=== PATIENT | female | born 1965 | race Caucasian/White ===

== ENCOUNTER 2019-10-19 13:26 | Emergency (ER) | payer BC, OTHER ==
[~2019-10-19] VITALS: Ht 162.6 cm; Wt 83.9 kg
[2019-10-19] MEDS ORDERED: KETOROLAC TROMETHAMINE 30 MG/ML VIAL IV ONE (14:26)
--- NOTE | 2019-10-19 14:32 | Diagnostic Imaging Report ---
CT of the abdomen and pelvis History: Lower abdominal pain Comparison: None available. Technique: Multidetector CT scanning of the abdomen and pelvis was performed from the level of the lung bases to the inferior pubic ramus, without contrast DOSE REDUCTION: The examination was performed according to departmental dose-optimization program which includes automated exposure control, adjustment of the mA and/or kV according to patient size and/or use of iterative reconstruction technique. Discussion: The lung bases are clear. The liver is within normal limits of size. In the peripheral right hepatic lobe there is a 1.1 x 1.7 cm low attenuating lesion which is not completely characterized on this noncontrast examination. The gallbladder is present nondistended. No radiopaque gallstones are identified. There is no intrahepatic or extrahepatic biliary dilatation. Spleen is within normal limits. The bilateral adrenal glands are unremarkable. The pancreas is normal in appearance. There is no pancreatic ductal dictation. The kidneys are normal in size. A nonobstructing 4 mm calculus is present in the upper pole of the left kidney. There is a 2.7 cm cyst in the lower pole of the left kidney. There is no hydroureteronephrosis bilaterally. At the left ureterovesicular junction there is a 5 x 3 mm calculus. The bladder is normal. The stomach, small, and large bowel are nondistended. There is no evidence of obstruction. The appendix is normal. There is no free intraperitoneal air or ascites. The uterus is surgically absent. The abdominal aorta is of normal course and caliber. No enlarged abdominal or retroperitoneal lymph nodes are identified. There are no acute osseous antibodies. IMPRESSION: 1. 5 mm x 3 mm calculus at the left ureterovesicular junction. There is no hydroureteronephrosis. Additionally, there is a nonobstructing 4 mm calculus in the upper pole of the left kidney. 2. Incompletely characterized 1.1 x 1.7 cm low attenuating lesion in the right hepatic lobe. Further evaluation can be obtained with a nonemergent multiphase contrast-enhanced CT or MRI. 3. Status post hysterectomy. Signed by: Joe Hagan MD on 10/19/2019 2:28 PM
[2019-10-19] MEDS ORDERED: KETOROLAC TROMETHAMINE 30 MG/ML VIAL ONE (14:41)
[2019-10-19] MEDS ORDERED: TYLENOL # 31 EA PO (14:48)
[2019-10-19] MEDS ORDERED: CEFDINIR300 MG PO (14:48)
[2019-10-19] MEDS ORDERED: SODIUM CHLORIDE 0.9% 1000ML 1,000 ML IV SCH (14:52)
[2019-10-19] MEDS ORDERED: SODIUM CHLORIDE 0.9% 1000ML 1,000 ML ONE (14:58)
--- OUTSIDE RECORDS SUMMARY | 2019-10-26 11:52 | XMS REPORT ---
Author Author [facility] Address Unknown Phone Unavailable Care Team Providers Care Chalk Machine Operator Name Role Phone Suri DELGADILLO Unavailable Unavailable Problems This patient has no known problems. Allergies, Adverse Reactions, Alerts This patient has no known allergies or adverse reactions. Medications This patient has no known medications. Results Test Description Test Time Test Comments Text Results Atomic Results Result Comments CT ABD/PEL WO CONTRAST-HOPD 2019-10-19 14:14:00 [place] [address] Patient Name: COURTNEY CASTELLANOS MR #: [id number] : 1965 Age/Sex: 54/F Req #: [id number] Adm Physician: Ordered by: JB DELGADILLO MD Report #: [id number] Location: [facility] Room/Bed: Procedure: [id number] HOPD/CT ABD/PEL WO CONTRAST-HOPD Exam Date: 10/19/19 Exam Time: 1408 REPORT STATUS: Signed CT of the abdomen and pelvis History: Lower abdominal pain Comparison: None available. Technique: Multidetector CT scanning of the abdomen and pelvis was performed from the level of the lung bases to the inferior pubic ramus, without contrast DOSE REDUCTION: The examination was performed according to departmental dose-optimization program which includes automated exposure control, adjustment of the mA and/or kV according to patient size and/or use of iterative reconstruction technique. Discussion: The lung bases are clear. The liver is within normal limits of size. In the peripheral right hepatic lobe there is a 1.1 x 1.7 cm low attenuating lesion which is not completely characterized on this noncontrast examination. The gallbladder is present nondistended. No radiopaque gallstones are identified. There is no intrahepatic or extrahepatic biliary dilatation. Spleen is within normal limits. The bilateral adrenal glands are unremarkable. The pancreas is normal in appearance. There is no pancreatic ductal dictation. The kidneys are normal in size. A nonobstructing 4 mm calculus is present in the upper pole of the left kidney. There is a 2.7 cm cyst in the lower pole of the left kidney. There is no hydroureteronephrosis bilaterally. At the left ureterovesicular junction there is a 5 x 3 mm calculus. The bladder is normal. The stomach, small, and large bowel are nondistended. There is no evidence of obstruction. The appendix is normal. There is no free intraperitoneal air or ascites. The uterus is surgically absent. The abdominal aorta is of normal course and caliber. No enlarged abdominal or retroperitoneal lymph nodes are identified. There are no acute osseous antibodies. IMPRESSION: 1. 5 mm x 3 mm calculus at the left ureterovesicular junction. There is no hydroureteronephrosis. Additionally, there is a nonobstructing 4 mm calculus in the upper pole of the left kidney. 2. Incompletely characterized 1.1 x 1.7 cm low attenuating lesion in the right hepatic lobe. Further evaluation can be obtained with a nonemergent multiphase contrast- enhanced CT or MRI. 3. Status post hysterectomy. Signed by: Joe Barnhart MD on 10/19/2019 2:28 PM Dictated By: JOE BARNHART MD [id number] Transcribed By: JANINE on 10/19/19 1427 COPY TO: JB DELGADILLO MD
== END 2019-10-19 15:38 | disposition home or self-care (01) ==
LOC: FSED 13:26
DX: M54.5 Low back pain (principal); R10.9 Unspecified abdominal pain; R31.9 Hematuria, unspecified; N39.0 Urinary tract infection, site not specified; N20.2 Calculus of kidney with calculus of ureter
CPT/HCPCS: 74176; 99284; J1885; J7030

== ENCOUNTER 2020-03-25 17:47 | Emergency (ER) | payer BC ==
[~2020-03-25] VITALS: Ht 162.6 cm; Wt 84.8 kg
[~2020-03-25 17:47] MED LIST: CEFDINIR300 MG PO; TYLENOL # 31 EA PO
--- OUTSIDE RECORDS SUMMARY | 2020-03-25 17:50 | XMS REPORT ---
Author Author [facility] t Organization [facility] Address [address] [place] [address] Phone Unavailable Care Team Providers Care Technical Instructor Course Developer Name Role Phone ROSIBEL PIZARRO PCP Suri ANN Attphys Unavailable Poag, A Kristen Attphys Sara Fitch Attphys Heidy Sandoval Attphys Jamar Villanueva Attphys Payers Payer Name Policy Type Policy Number Effective Date Expiration Date Jonah Wei o [id number] 2007 00:00:00 [facility] Problems This patient has no known problems. Allergies, Adverse Reactions, Alerts This patient has no known allergies or adverse reactions. Medications Ordered Medication Name Filled Medication Name Start Date Stop Da te Current Medication? Ordering Clinician Indication Dosage Frequency Signature (SIG) Comments Components Source Acetaminophen/Codeine Phosphate (Tylenol # 3*) 1 Ea Ta b Acetaminophen/Codeine Phosphate (Tylenol # 3*) 1 Ea Tab 2019-10-19 00:00:00 Yes Jb Ann Md 1 Every 4 Hours as needed for Moderate Pain (4-6) [facility] Cefdinir (Omnicef) 300 Mg Capsule Cefdinir (Omnicef) 300 Mg Capsule 2019-10-19 00:00:00 Yes Jb Ann Md 300 Every 12 Hours [facility] Procedures This patient has no known procedures. Encounters Start Date/Time End Date/Time Encounter Type Admission Type [facility] Care Department Encounter ID Source 2019-10-19 13:26:00 2019-10-19 15:38:00 Departed Emergency Room 1 JB ANN [facility] [id number] [facility] 2017-05-14 08:21:00 2017-05-14 23:59:00 Outpatient RamboKristen [facility] [id number] [facility] - [place] 2017-03-25 13:53:00 2017-03-25 23:59:00 Outpatient Yolande Fitch [facility] [id number] [facility] Out patient Imaging - [place] 2016-06-01 14:57:00 2016-06-01 23:59:00 [facility] [id number] - [place] 2015-07-08 22:21:00 2015-07-09 03:05:00 Outpatient Atilio Villanueva [facility] [id number] [facility] Results Test Description Test Time Test Comments Results Result Comments Source CT ABD/PEL WO CONTRAST-HOPD 2019-10-19 14:14:00 [place] [address] Patient Name: COURTNEY ACSTELLANOS MR #: [id number] : 1965 Age/Sex: 54/F Req #: [id number] Adm Physician: Ordered by: JB ANN MD Report #: [id number] Location: [facility] Room/Bed: Procedure: [id number] HOPD/CT ABD/PEL WO CONTRAST-HOPD Exam Date: 10/19/19 Exam Time: 1408 REPORT STATUS: Signed CT of the abdomen and pelvis History: Lower abdominal pain Comparison: None available. Technique: Multidetector CT scanning of the abdomen and pelvis was performed from the level of the lung bases to the inferior pubic ramus, without contrast DOSE REDUCTION: The examination was performed according to departmental dose- optimization program which includes automated exposure control, adjustment [...] There is no evidence of obstruction. The appendi x is normal. There is no free intraperitoneal [...] can be obtained with a nonemergent multiphase contrast-enhanced CT or MRI. 3. Status post hysterectomy. Signed by: Joe Barnhart MD on 10/19/2019 2:28 PM Dictated By: JOE BARNHART MD 142 Transcribed By: JANINE on 10/19/191427 COPY TO: JB ANN MD
--- OUTSIDE RECORDS SUMMARY | 2020-03-25 17:50 | XMS REPORT | Summary of Care ---
Author Author [facility] - [facility] Organization [facility] - [facility] Address Unknown Phone Unavailable Encounter HQ Encntr_christy(FIN) [id number] Date(s): 05/14/17 - 05/14/17 [facility] Outpatient Imaging - [place] [address] [phone] Discharge Disposition: Home or Self Care Attending Physician: Kristen Ricks MD Vital Signs No data available for this section Problem List Condition Effective Dates Status Health Status Informan t Low back pain1 09/05/14 Active 1Data migrated from [employer] on 07/01/15. Allergies, Adverse Reactions, Alerts Substance Reaction Severity Status morphine Active NKDA Active Medications No data available for this section Results No data available for this section Immunizations No data available for this section Procedures Procedure Date Related Diagnosis Body Site section Social History Social History Type Response Smoking Status Never smoker; Exposure to T obacco Smoke None; Cigarette Smoking Last 365 Days No; Reg Smoking Cessation Counseli ng No Assessment and Plan No data available for this section
--- OUTSIDE RECORDS SUMMARY | 2020-03-25 17:50 | XMS REPORT | Continuity of Care Document ---
Author Author [employer] Organization [employer] Address Unknown Phone Unavailable Care Team Providers Care Exhaust Equipment Operator Name Role Phone [facility] Unavailable Un available Problems Problem Status Onset Date Classification Date Reported Comments Source N94.6 - "DYSMENORRHEA, UNSPECIFIED" N92 Active 05/25/2016 DERIAN Robert Discharge Diagnosis: Atypical chest pain 07/09/2015 07/12/2015 [facility] Discharge Diagnosis: Acute gastritis 07/09/2015 07/12/2015 [facility] CHEST PAIN Active 07/08/2015 [facility] Low back pain (disorder) Active 09/05/2014 Problem 05/17/2017 Data migrated from itembase on 07/01. EDRIAN Robert,[facility] Medications Medication Details Route Status Patient Instructions Ordering Provider Order Date Source tramadol hydrochloride 50 MG Oral Tablet [Ultram] 50 mg = 1 tab, PO, Q4H, PRN pain, X 3 day, # 20 tab, 0 Refill(s) No Longer Active 07/09/2015 [facility] Esomeprazole 20 MG Enteric Coated Capsule [Nexium] 20 mg = 1 cap, PO, Daily, # 30 cap, 0 Refill(s) Active 07/09/2015 [facility] GI cocktail 30 mL, Route: PO, Dosing Weight 79.545, kg, ONCE, STAT, Start date: 07/09/15 0:08:00, Stop date: 07/09/15 0:08:00 Inactive 07/09/2015 [facility] Allergies, Adverse Reactions, Alerts Substance Category Reaction Severity Reaction type Status Date Reported Comments Source morphine Assertion Drug allergy Active DERIAN Robert Immunizations No Data Provided for This Section Results Order Name Results Value Reference Range Date Interpretation Comments Source CARDIAC ENZYMES CK MB Index <0.6 0.0 - 2.5 07/09/2015 [facility] CARDIAC ENZYMES CK MB <0.5 0.5 - 3.6 07/09/2015 [facility] CARDIAC ENZYMES Troponin-I <0.02 0.00 - 0.40 07/09/2015 [facility] CARDIAC ENZYMES Total CK 82 12 - 191 07/09/2015 [facility] CARDIAC ENZYMES CK MB Index <0.3 0.0 - 2.5 07/09/2015 [facility] CARDIAC ENZYMES CK MB <0.5 0.5 - 3.6 07/09/2015 [facility] CARDIAC ENZYMES Troponin-I <0.02 0.00 - 0.40 07/09/2015 [facility] CARDIAC ENZYMES Total CK 162 12 - 191 07/09/2015 [facility] ELECTROLYTES AGAP 12.2 10.0 - 20.0 07/09/2015 [facility] ELECTROLYTES A/G Ratio 0.9 0.7 - 1.6 07/09/2015 [facility] ELECTROLYTES Globulin 4.6 2.0 - 4.0 07/09/2015 [facility] ELECTROLYTES B/C Ratio 12 6 - 25 07/09/2015 [facility] ELECTROLYTES BUN 13 7 - 22 07/09/2015 [facility] ELECTROLYTES Alk Phos 95 39 - 136 07/09/2015 [facility] ELECTROLYTES Bili Total 0.3 0.2 - 1.3 07/09/2015 [facility] ELECTROLYTES AST 66 0 - 37 07/09/2015 [facility] ELECTROLYTES ALT 41 0 - 65 07/09/2015 [facility] ELECTROLYTES Glucose Lvl 110 70 - 99 07/09/2015 [facility] ELECTROLYTES Total Protein 8.6 6.4 - 8.4 07/09/2015 [facility] ELECTROLYTES Albumin Lvl 4.0 3.5 - 5.0 07/09/2015 [facility] ELECTROLYTES CO2 24 24 - 32 07/09/2015 [facility] ELECTROLYTES eGFR 59 07/09/2015 Result Comment: The eGFR is calculated using the CKD-EPI formula. In most young, healthy individuals the eGFR will be >90 mL/min/1.73m2. The eGFR declines with age. An eGFR of 60-89 may be normal in some populations, particularly the elderly, for whom the CKD-EPI formula has not been extensively validated. Use of the eGFR is not recommended in the following populations:

Individuals with unstable creatinine concentrations, including patients and those with serious co-morbid conditions.

Patients with extremes in muscle mass or diet.

The data above are obtained from the National Kidney Disease Education Program (NKDEP) which additionally recommends that when the eGFR is used in patients with extremes of body mass index for purposes of drug dosing, the eGFR should be multiplied by the estimated BMI. [facility] ELECTROLYTES Sodium Lvl 136 135 - 145 07/09/2015 [facility] ELECTROLYTES Creatinine Lvl 1.1 0.5 - 1.4 07/09/2015 [facility] ELECTROLYTES Potassium Lvl 5.2 3.5 - 5.1 07/09/2015 [facility] ELECTROLYTES Calcium Lvl 9.1 8.5 - 10.5 07/09/2015 [facility] ELECTROLYTES Chloride Lvl 105 95 - 109 07/09/2015 [facility] HEMATOLOGY Platelet 252 133 - 450 07/09/2015 [facility] HEMATOLOGY MPV 10.5 7.4 - 10.4 07/09/2015 [facility] HEMATOLOGY MCHC 32.5 32.0 - 36.0 07/09/2015 [facility] HEMATOLOGY RDW 13.3 11.5 - 14.5 07/09/2015 [facility] Hct 42.6 36.0 - 48.0 07/09/2015 [facility] HEMATOLOGY MCV 88.7 80.0 - 98.0 07/09/2015 [facility] MCH 28.8 27.0 - 31.0 07/09/2015 [facility] HEMATOLOGY RBC 4.80 4.20 - 5.40 07/09/2015 [facility] HEMATOLOGY Hgb 13.8 12.0 - 16.0 07/09/2015 [facility] HEMATOLOGY WBC 6.4 3.7 - 10.4 07/09/2015 [facility] HEMATOLOGY Monocytes 5.9 2.0 - 12.0 07/09/2015 [facility] HEMATOLOGY Eosinophils 3.0 0.0 - 4.0 07/09/2015 [facility] HEMATOLOGY Basophils 1.1 0.0 - 1.0 07/09/2015 [facility] HEMATOLOGY Lymphocytes 40.9 20.0 - 40.0 07/09/2015 [facility] HEMATOLOGY Segs 49.1 45.0 - 75.0 07/09/2015 [facility] HEMATOLOGY Segs-Bands # 3.2 1.5 - 8.1 07/09/2015 [facility] HEMATOLOGY Monocytes # 0.4 0.0 - 0.8 07/09/2015 [facility] HEMATOLOGY Eosinophils # 0.2 0.0 - 0.5 07/09/2015 [facility] HEMATOLOGY Basophils # 0.1 0.0 - 0.2 07/09/2015 [facility] HEMATOLOGY Lymphocytes # 2.6 1.0 - 5.5 07/09/2015 [facility] Pathology Reports No Data Provided for This Section Diagnostic Reports Report Value Date Source Breast Mammo Scrn LANDEN incl CAD MA AMENDMENT: 06/16/2017 Harley Gaitan M.D. Previous outside mammograms dated 05/11/16, 11/23/11, 05/26/10 have been received. No significant change from previous exam noted. Annual screening mammogram is recommended. Amended BI-RADS: 1 Negative - BREAST MAMMO SCRN LANDEN INCL CAD MA BILATERAL DIGITAL SCREENING MAMMOGRAM WITH CAD: 05/14/2017 CLINICAL: Screening/Z12.31. Current study was evaluated with a Computer Aided Detection (CAD) system. No prior exams were available for comparison. There are scattered fibroglandular densities in both breasts. No significant masses, calcifications, or other findings are seen in either breast. IMPRESSION: NEGATIVE There is no mammographic evidence of malignancy. A 1 year screening mammogram is recommended. Professional services are provided by the [facility] Division of Diagnostic Imaging. Emi childs/eyad:05/30/2017 14:33:18 Cutter Barrel Drum: Jemma Richter, [facility] This exam was dictated and interpreted by [id number] for ZEENAT Manzo. letter sent: Normal exam Mammogram BI-RADS: 1 Negative 05/14/2017 DERIAN Robert Foot wo contrast MRI CLINICAL HISTORY: M67.472 Ganglion, left ankle and foot - ganglion cyst AGE: 52 years GENDER: Female TECHNIQUE: Multiplanar, multisequence MRI of the left forefoot and midfoot was performed without gadolinium based contrast. COMPARISON: None available FINDINGS: Moderate degenerative changes are seen in the second tarsometatarsal joint with associated marrow edema in the middle cuneiform and second metatarsal base. Edema extends into the proximal second metatarsal metadiaphysis. Mild overlying soft tissue edema is seen dorsal to the second TMT joint. No discrete loculated ganglion cyst is seen at this site. Mild degenerative changes in the third TMT joint. There is hallux valgus deformity of the first MTP joint with mild lateralization of the sesamoids and flattening of the cristiana. Mild degenerative changes are seen in the first MTP and MTS joints. The visualized flexor and extensor tendons are intact and unremarkable. Visualized musculature is within normal limits. The Lisfranc articulation is normally aligned. The Lisfranc ligament is intact. Mild third intermetatarsal bursitis. 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 Degree of marrow edema in the second metatarsal base raises the question of superimposed stress reaction. There is moderate dorsal soft tissue edema overlying the second tarsometatarsal joint without evidence of significant ganglion cyst formation. MR findings suggest hallux valgus deformity of the first MTP joint with mild lateralization of the hallux sesamoids. This can be confirmed with weightbearing radiographs as warranted. Mild degenerative changes of the first MTP and MTS joints. Mild third intermetatarsal bursitis. 03/25/2017 [facility] [place] Pelvis w Pelvis Transvaginal US EXAM: Pelvic ultrasound. INDICATION: Dysmenorrhea. Age: 51 years. Gender: Female. LMP: 05/24/2016. TECHNIQUE: Grayscale and Doppler sonogram of the pelvis. Transabdominal technique was used. Transvaginal technique was used for better evaluation of the pelvic viscera. COMPARISON: None. FINDINGS: Uterus: Visualization: Well seen. Anteverted. Measures 9.6 x 4.3 x 7.7 cm. 2.8 x 3.5 x 3.4 cm anterior intramural a nd 3.5 x 2.5 x 2.4 cm right intramural fibroids. Endometrial stripe: Measures 0.7 cm which is not thickened. Right ovary: Measures 2 x 1 x 1.4 cm. Doppler flow: Present. Left ovary: Measures 2 x 1.6 x 1.9 cm. Doppler flow: Present. Other: 1.5 cm anechoic follicular cyst; no follow-up needed. Other: Free fluid: None. IMPRESSION: 1. Intramural fibroids. Recommendations for f/u of anechoic simple cyst, simple cyst with single thin <3mm septation, or focal calcification in wall of cyst1: Pre-menopause: < 5 cm No f/u necessary >5cm - <7cm US f/u yearly >7cm Consider MR w/IVC or surgical evaluation Post-menopause (1 year or more since last menstrual period): <3 cm No f/u necessary >3cm - <7 cm US f/u yearly >7cm Consider MR w/IVC or surgical evaluation __ 1. Recommendations based upon the 2009 S RU Consensus Conference Statement on the Management of asymptomatic ovarian and adnexal cysts imaged at US. Radiology. 2009;256(3):183-54 06/01/2016 DERIAN Robert Chest 2 views DX NAME: COURTNEY VENTURA : 1965 SEX: F Ordering Physician: Bolivar Pritchard Chest 2 views : Jul 08, 2015 11:07:00 PM. CLINICAL INDICATION: Chest pain. Comparison Examination: None. FINDINGS: Cardiac and mediastinal structures are normal. No focal infiltrates are identified within the lungs, no edema, no pleural effusions and no pneumothorax. The patient is status post prior cervical spine surgery. SL: 14 07/08/2015 [facility] Consultation Notes No Data Provided for This Section Discharge Summaries No Data Provided for This Section History and Physicals No Data Provided for This Section Vital Signs Vital Sign Value Date Comments Source Heart Rate 83 07/09/2015 [facility] Respitory Rate 20 07/09/2015 [facility] Temperature Oral (F) 98.1 F 07/09/2015 [facility] Systolic (mm Hg) 109 07/09/2015 [facility] Diastolic (mm Hg) 73 07/09/2015 [facility] Systolic (mm Hg) 139 07/09/2015 [facility] Diastolic (mm Hg) 96 07/09/2015 [facility] Respitory Rate 17 07/09/2015 [facility] Systolic (mm Hg) 139 07/09/2015 [facility] Diastolic (mm Hg) 96 07/09/2015 [facility] Respitory Rate 18 07/09/2015 [facility] Temperature Oral (F) 98.2 F 07/09/2015 [facility] Heart Rate 74 07/09/2015 [facility] BMI Calculated 30.1 07/09/2015 [facility] Weight 79.545 07/09/2015 [facility] Height 162.56 cm 07/09/2015 [facility] Heart Rate 97 07/09/2015 [facility] Temperature Oral (F) 98.4 F 07/09/2015 [facility] Encounters Location Location Details Encounter Type Encounter Number Reason For Visit Attending Provider ADM Date DC Date Status Source [facility] [id number] Atilio Villanueva 07/09/2015 07/09/2015 [facility] [place] [facility] [id number] Kirstie WilliamDeshaun 06/01/2016 06/02/2016 DERIAN [place] [facility] [place] [facility] [id number] Yolande Michaudedd 03/25/2017 03/26/2017 DERIAN [place] [facility] [place] [facility] [id number] 02 Kristen Poag 05/14/2017 05/15/2017 DERIAN Robert Procedures Procedure Code Date Perfomer Comments Source section [id number] DERIAN Robert, Chandan Assessment and Plan No Data Provided for This Section Plan of Care No Data Provided for This Section Social History Social History Date Source Social History TypeResponse Smoking Status Never smoker; Exposure to Tobacco Smoke None; Cigarette Smoking Last 365 Days No; Reg Smoking Cessation Counseling No 03/24/2017 DERIAN Robert Social History TypeResponse Smoking Status Never smoker; Exposure to Tobacco Smoke None; Cigarette Smoking Last 365 Days No; Reg Smoking Cessation Counseling No 07/09/2015 [facility] Family History No Data Provided for This Section Advance Directives No Data Provided for This Section Functional Status No Data Provided for This Section
--- OUTSIDE RECORDS SUMMARY | 2020-03-25 17:50 | XMS REPORT | Summary of Care ---
Author Author [facility] Organization [facility] Address Unknown Phone Unavailable Encounter MANDA Abraham(LAUREN) [id number] Date(s): 07/08/15 - 07/09/15 [facility] [address] [place] [address]- Discharge Diagnosis: Atypical chest pain Discharge Diagnosis: Acute gastritis Discharge Disposition: Home Attending Physician: Atilio Villanueva MD Vital Signs 1 2 3 Most recent to oldest [Reference Range]: 162.56 cm (07/08/15 10:22 PM) Height 1 2 3 Most recent to oldest [Reference Range]: 98.1 DegF (07/09/15 3:05 AM) 98.2 DegF (07/09/15 1:00 AM) 98.4 DegF (07/08/15 10:22 PM) Temperature Oral [96.4-99.1 DegF] 1 2 3 Most recent to oldest [Reference Range]: 109/73 mmHg (07/09/15 3:05 AM) 139/96 mmHg (07/09/15 1:56 AM) 139/96 mmHg (07/09/15 1:00 AM) Blood Pressure [90-140/60-90 mmHg] 1 2 3 Most recent to oldest [Reference Range]: 20 BRMIN (07/09/15 3:05 AM) 17 BRMIN (07/09/15 1:56 AM) 18 BRMIN (07/09/15 1:00 AM) Respiratory Rate [14-20 BRMIN] 1 2 3 Most recent to oldest [Reference Range]: 83 bpm (07/09/15 3:05 AM) 74 bpm (07/09/15 1:00 AM) 97 bpm (07/08/15 10:22 PM) Peripheral Pulse Rate [60-100 bpm] 1 2 3 Most recent to oldest [Reference Range]: 79.545 kg (07/08/15 10:22 PM) Weight 1 2 3 Most recent to oldest [Reference Range]: 30.1 m2 (07/08/15 10:22 PM) Body Mass Index Problem List Condition Effective Dates Status Health Status Informan t Low back pain1 09/05/14 Active 1Data migrated from [facility] on 07/01/15. Allergies, Adverse Reactions, Alerts Substance Reaction Severity Status morphine Active Medications GI cocktail 30 mL, Route: PO, Dosing Weight 79.545, kg, ONCE, STAT, Start date: 07/09/15 0:0 8:00, Stop date: 07/09/15 0:08:00 Start Date: 07/09/15 Stop Date: 07/09/15 Status: Completed NexIUM 20 mg oral delayed release capsule 20 mg = 1 cap, PO, Daily, # 30 cap, 0 Refill(s) Start Date: 07/09/15 Status: Ordered Ultram 50 mg oral tablet 50 mg = 1 tab, PO, Q4H, PRN pain, X 3 day, # 20 tab, 0 Refill(s) Start Date: 07/09/15 Stop Date: 07/12/15 Status: Completed Results ELECTROLYTES Most recent to 1 2 oldest [Reference Range]: Sodium Lvl [135-145 136 mEq/L mEq/L] (07/08/15 10:27 PM) Potassium Lvl 5.2 mEq/L [3.5-5.1 mEq/L] *HI* (07/08/15 10:27 PM) Chloride Lvl [95-109 105 mEq/L mEq/L] (07/08/15 10:27 PM) CO2 [24-32 mEq/L] 24 mEq/L (07/08/15 10:27 PM) AGAP [10.0-20.0 12.2 mEq/L mEq/L] (07/08/15 10:27 PM) CHEM PANEL Most recent to 1 2 oldest [Reference Range]: Creatinine Lvl 1.1 mg/dL [0.5-1.4 mg/dL] (07/08/15 10:27 PM) eGFR 59 mL/min/1.73m2 1 *NA* (07/08/15 10:27 PM) BUN [7-22 mg/dL] 13 mg/dL (07/08/15 10:27 PM) B/C Ratio [6-25] 12 (07/08/15 10:27 PM) Glucose Lvl [70-99 110 mg/dL mg/dL] *HI* (07/08/15 10:27 PM) Total Protein 8.6 g/dL [6.4-8.4 g/dL] *HI* (07/08/15 10:27 PM) Albumin Lvl [3.5-5.0 4.0 g/dL g/dL] (07/08/15 10:27 PM) Globulin [2.0-4.0 4.6 g/dL g/dL] *HI* (07/08/15 10:27 PM) A/G Ratio [0.7-1.6] 0.9 (07/08/15 10:27 PM) Calcium Lvl 9.1 mg/dL [8.5-10.5 mg/dL] (07/08/15 10:27 PM) ALT [0-65 unit/L] 41 unit/L (07/08/15 10:27 PM) AST [0-37 unit/L] 66 unit/L *HI* (07/08/15 10:27 PM) Alk Phos [39-136 95 unit/L unit/L] (07/08/15 10:27 PM) Bili Total [0.2-1.3 0.3 mg/dL mg/dL] (07/08/15 10:27 PM) 1Result Comment: The eGFR is calculated using the [...] from the National Kidney Disease Education Program ( NKDEP) which additionally recommends that when the eGFR is used in patients with extremes of body mass index for purposes of drug dosing, the eGFR should be mul tiplied by the estimated BMI. CARDIAC ENZYMES Most recent to 2 oldest [Reference Range]: Total CK [12-191 82 unit/L 162 unit/L unit/L] (07/09/15 1:41 AM) (07/08/15 10:27 PM) CK MB [0.5-3.6 <0.5 ng/mL <0.5 ng/mL ng/mL] (07/09/15 1:41 AM) (07/08/15 10:27 PM) CK MB Index <0.6 <0.3 [0.0-2.5] (07/09/15 1:41 AM) (07/08/15 10:27 PM) Troponin-I <0.02 ng/mL <0.02 ng/mL [0.00-0.40 ng/mL] (07/09/15 1:41 AM) (07/08/15 10:27 PM) HEMATOLOGY Most recent to 1 2 oldest [Reference Range]: WBC [3.7-10.4 K/CMM] 6.4 K/CMM (07/08/15 10:27 PM) RBC [4.20-5.40 4.80 M/CMM M/CMM] (07/08/15 10:27 PM) Hgb [12.0-16.0 g/dL] 13.8 g/dL (07/08/15 10:27 PM) Hct [36.0-48.0 %] 42.6 % (07/08/15 10:27 PM) MCV [80.0-98.0 fL] 88.7 fL (07/08/15 10:27 PM) MCH [27.0-31.0 pg] 28.8 pg (07/08/15 10:27 PM) MCHC [32.0-36.0 32.5 g/dL g/dL] (07/08/15 10:27 PM) RDW [11.5-14.5 %] 13.3 % (07/08/15 10:27 PM) Platelet [133-450 252 K/CMM K/CMM] (07/08/15 10:27 PM) MPV [7.4-10.4 fL] 10.5 fL *HI* (07/08/15 10:27 PM) Segs [45.0-75.0 %] 49.1 % (07/08/15 10:27 PM) Lymphocytes 40.9 % [20.0-40.0 %] *HI* (07/08/15 10:27 PM) Monocytes [2.0-12.0 5.9 % %] (07/08/15 10:27 PM) Eosinophils [0.0-4.0 3.0 % %] (07/08/15 10:27 PM) Basophils [0.0-1.0 1.1 % %] *HI* (07/08/15 10:27 PM) Segs-Bands # 3.2 K/CMM [1.5-8.1 K/CMM] (07/08/15 10:27 PM) Lymphocytes # 2.6 K/CMM [1.0-5.5 K/CMM] (07/08/15 10:27 PM) Monocytes # [0.0-0.8 0.4 K/CMM K/CMM] (07/08/15 10:27 PM) Eosinophils # 0.2 K/CMM [0.0-0.5 K/CMM] (07/08/15 10:27 PM) Basophils # [0.0-0.2 0.1 K/CMM K/CMM] (07/08/15 10:27 PM) Immunizations No data available for this section Procedures Procedure Date Related Diagnosis Body Site section Social History Social History Type Response Smoking Status Never smoker; Exposure to T obacco Smoke None; Cigarette Smoking Last 365 Days No; Reg Smoking Cessation Counseli ng No Assessment and Plan No data available for this section
--- OUTSIDE RECORDS SUMMARY | 2020-03-25 17:50 | XMS REPORT | Summary of Care ---
Author Author [facility] Organization [facility] Address Unknown Phone Unavailable Encounter HQ Madelinentr_christy(FIN) [id number] Date(s): 06/01/16 - 06/01/16 [facility] - [place] [address] [phone] Discharge Disposition: Home or Self Care Attending Physician: Kirstie Sandoval MD Vital Signs No data available for this section Problem List Condition Effective Dates Status Health Status Informan t Low back pain1 09/05/14 Active 1Data migrated from [facility] on 07/01/15. Allergies, Adverse Reactions, Alerts Substance Reaction Severity Status morphine Active Medications No data available for this [...]
--- OUTSIDE RECORDS SUMMARY | 2020-03-25 17:50 | XMS REPORT | Summary of Care ---
Author Author [facility] Organization [facility] Address Unknown Phone Unavailable Encounter HQ Encntr_christy(FIN) [id number] Date(s): 03/25/17 - 03/25/17 [facility] - [place] [address] [phone] Discharge Disposition: Home or Self Care Attending Physician: Yolande Fitch MD Vital Signs No data available for this section Problem List Condition Effective Dates Status Health Status Informan t Low back pain1 09/05/14 Active 1Data migrated from [employer] on 07/01/15. Allergies, Adverse Reactions, Alerts Substance [...]
[2020-03-25] MEDS ORDERED: ONDANSETRON HCL INJ 2MG/ML 2ML 2 MG/ML VIAL IV STA (18:28)
[2020-03-25] MEDS ORDERED: KETOROLAC TROMETHAMINE 30 MG/ML VIAL IV STA (18:28)
[2020-03-25] MEDS ORDERED: SODIUM CHLORIDE 0.9% 1000ML 1,000 ML IV ONE (18:30)
[2020-03-25] MEDS ORDERED: KETOROLAC TROMETHAMINE 30 MG/ML VIAL ONE (18:32)
[2020-03-25] MEDS ORDERED: SODIUM CHLORIDE 0.9% 1000ML 1,000 ML ONE (18:32)
--- NOTE | 2020-03-25 18:33 | Emergency Department Note ---
History of Present Illnes History of Present Illness Chief Complaint: Abdominal Complaints History of Present Illness This is a 55 year old female with a history of recurrent nep hrolithiasis, migraines, and narcolepsy who presents with history of right flank pain and hematuria that started last night and worsened today. She has also had some dysuria. No N/V, fever or chills. Pt was seen here on 10/19/2019 with similar symptoms and was found to have a 5mm x 3mm calculus at the L UVJ with no hydro, along with a 4mm stone in the upper pole of the left kidney. Her Urologist is Dr. Sanders in [place], but she has not seen him in quite a while. [facility] Aware [place] website queried and she has had no recent Rx for opioid pain medication. Historian: Patient Arrival Mode: Car Additional Treatment JANITORIAL MANAGER: N Sleeve Setter Required: No Onset (how long ago): day(s) (1) Location: right flank and suprapubic area Quality: sharp and stabbing Radiation: abdomen, flank Severity: moderate Onset quality: sudden Duration (how long): day(s) (1) Timing of current episode: constant Progression: worsening Chronicity: recurrent Context: recent illness, recent surgery, recent travel Relieving factors: none Exacerbating factors: none Treatments prior to arrival: none Risk factors: Recurrent kidney stone Previous service: medications given Past Medical/Family History Physician Review I have reviewed the patient's past medical and family history. Any updates have been documented here. Past Medical History Recent Fever: No Clinical Suspicion of Infectio: No New/Unexplained Change in Ment: No Past Medical History: Kidney Stones, Migraines Other Medical History: Narcolepsy Past Surgical History: Hysterectomy, Other Surgery: CERVICAL FUSION Social History Smoking Cessation: Never Smoker Counseling Performed: No Alcohol Use: None Any Illegal Drug Use: No TB Exposure/Symptoms: No Physically hurt or threatened: No Family History Family history of heart diseas: No Other Any Pre-Existing Lines (PICC,: No Is patient up to date on immun: Yes Last Flu: UTD Last Pneumovax: none Review of Systems Review of Systems Constitutional: no symptoms EENTM: no symptoms Cardiovascular: no symptoms Respiratory: no symptoms Gastrointestinal: no symptoms, nausea Genitourinary: hematuria, pain (right flank pain, radiating into the right lower abdomen, sharp, stabbing, "like her previous kidney stones.") Musculoskeletal: no symptoms Neurological: no symptoms Psychological: no symptoms Hematological/Lymphatic: no symptoms Review of other systems All other systems reviewed and negative. Physical Exam Related Data Allergies: Coded Allergies: No Known Allergies (Unverified , 10/19/19) Triage Vital Signs Vital Signs Date Time Temp Pulse Resp B/P (MAP) Pulse Ox O2 Delivery O2 Flow Rate FiO2 03/25/20 18:00 100.0 95 18 151/86 96 Vital signs reviewed: Yes Physical Exam CONSTITUTIONAL Constitutional: well-developed, well-nourished HENT HENT: normocephalic, atraumatic, oropharynx clear/moist, nose normal HENT L/R: left ext ear normal, right ext ear normal EYES Eyes: PERRL, conjunctivae normal NECK Neck: ROM normal PULMONARY Pulmonary: effort normal, breath sounds normal CARDIOVASCULAR Cardiovascular: regular rhythm, heart sounds normal, capillary refill normal, normal rate GASTROINTESTINAL Abdominal: bowel sounds normal, tender (mild ttp of right lower abdomen, without rebound or guarding) GENITOURINARY SKIN Skin: warm, dry MUSCULOSKELETAL Musculoskeletal: ROM normal NEUROLOGICAL Neurological: alert, oriented x 3, no gross motor or sensory deficits PSYCHOLOGICAL Psychological: mood/affect normal, judgement normal Results Laboratory Lab results reviewed: Yes Laboratory comments CMP - nl CBC - nl UA - blood - large, pro - 100 mg/dl, sho - small; sent for C&S Imaging Imaging results reviewed: Yes Imaging Comments CT abd/pelvis w/o contrast: - NO ureteral calculi,hydronehrosis or obstruction - Stable 4mm nonobstructing calculus in the left superior pole - slight interval increase in size of inthe 3.6 cm simple cyst of the left kidney, which requires no further f/u - subcentimeter focus in nondependent poriton of the bladder, correlate with prior instrumentation/flores catheter placement - stable 1.8 cm low-attenuation lesion in hepatic segment VII, which remains indeterminate (pt states that 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 Assessment & Plan Assessment & Plan Final Impression: (1) Abdominal pain (2) Flank pain, acute (3) UTI (urinary tract infection) (4) Left nephrolithiasis Assessment & Plan - Discussed with patient that the diagnostic evaluation did not reveal any symptomatic kidney stones to correlate with her right sided pain. It is possible that she may have passed the stone, as her pain has improved (after MSO4). However, there is no residual evidence on CT of a right sided stone. Pt is surprised that there isn't a stone. - Discussed that her urine suggests that she may have a UTI, which could certainly present with similar symptoms. Explained that we will treat her empirically for a UTI, pending the urine culture results. - Stressed importance of her following up with her Urologist. - Pt encouragd to increase fluid intake and to f/u if symptoms worsen. PT voiced understanding of the plan. Depart Disposition: HOME, SELF-CARE Last Vital Signs Date Time Temp Pulse Resp B/P (MAP) Pulse Ox O2 Delivery O2 Flow Rate FiO2 03/25/20 18:00 100.0 95 18 151/86 96 Home Meds Active Scripts Ondansetron (ONDANSETRON ODT) 8 Mg Tab.rapdis, 1 TAB PO Q8H for nausea and vomiting, #20 TAB 0 Refills Prov:PRANEETH WHALEN MD 03/25/20 Phenazopyridine Hcl (PHENAZOPYRIDINE HCL) 100 Mg Tablet, 200 MG PO TID PRN for urinary pain for 2 Days, #6 TAB 0 Refills Prov:PRANEETH WHALEN MD 03/25/20 Acetaminophen With Codeine (TYLENOL WITH CODEINE #3 TABLET) 1 Each Tablet, 1-2 TAB PO Q6H for pain, #15 TAB 0 Refills Prov:PRANEETH WHALEN MD 03/25/20 Cefdinir (OMNICEF) 300 Mg Capsule, 1 TAB PO BID for infection, #20 CAP 0 Refills Prov:PRANEETH WHALEN MD 03/25/20 Cefdinir (OMNICEF) 300 Mg Capsule, 300 MG PO Q12HR for 7 Days, #14 Prov:JB DELGADILLO MD 10/19/19 Acetaminophen/Codeine* (TYLENOL # 3*) 1 Ea Tab, 1 TAB PO Q4HR PRN for MODERATE PAIN (4-6) for 3 Days, #10 Prov:JB DELGADILLO MD 10/19/19 Medications in the ED Ketorolac Tromethamine 30 mg STK-MED ONCE .ROUTE ; Start 03/25/20 at 18:32; Stop 03/25/20 at 18:28; Status DC Sodium Chloride 1,000 ml @ ud STK-MED ONCE .ROUTE ; Start 03/25/20 at 18:32; Stop 03/25/20 at 18:28; Status DC PRANEETH WHALEN MD March 25, 2020 18:33
--- NOTE | 2020-03-25 18:39 | NUR ---
Report to JOSE LUIS Salcedo
[2020-03-25] MEDS ORDERED: DIPHENHYDRAMINE HCL INJ 50 MG/ML VIAL IV NR (19:15)
[2020-03-25] MEDS ORDERED: MORPHINE SULFATE 2 MG/ML SYR 1ML IV NR (19:15)
[2020-03-25] MEDS ORDERED: DIPHENHYDRAMINE HCL INJ 50 MG/ML VIAL ONE (19:22)
[2020-03-25] MEDS ORDERED: MORPHINE SULFATE INJ 4 MG/ML INJ 1ML ONE (19:22)
--- NOTE | 2020-03-25 19:39 | Diagnostic Imaging Report ---
EXAMINATION: CT of the abdomen and pelvis without contrast. TECHNIQUE: Spiral CT images of the abdomen and pelvis were performed from the lung bases to the lesser trochanters. No intravenous contrast was given per renal stone protocol. Coronal and sagittal reformatted images were obtained. COMPARISON: CT abdomen and pelvis without contrast 10/19/2019 CLINICAL HISTORY:Right flank pain since this morning, abdominal pain DISCUSSION: ABSENCE OF INTRAVENOUS CONTRAST DECREASES SENSITIVITY FOR DETECTION OF FOCAL LESIONS AND VASCULAR PATHOLOGY. ABDOMEN/PELVIS: LOWER THORAX: Minimal bilateral lower lobe dependent atelectasis. Stable atelectatic changes and linear scarring in the medial right middle lobe HEPATOBILIARY: Normal hepatic size and contour. Stable 1.8 x 1.1 cm low-attenuation lesion in hepatic segment VII (series 2, image 17), which is less conspicuous on the prior exam. No other focal lesions. No intra or extrahepatic biliary ductal dilation. GALLBLADDER: No radio-opaque stones or sludge. No wall thickening. SPLEEN: No splenomegaly. PANCREAS: No focal masses or ductal dilatation. ADRENALS: No adrenal nodules. KIDNEYS/URETERS: Right: No renal, ureteral calculi, hydronephrosis or obstruction. No significant perinephric stranding. No contour abnormalities. Left: Stable 4 mm nonobstructing calculus in the left superior pole (series 3, image 61). No other renal or ureteral calculi, hydronephrosis or obstruction. Slight interval increase in size of 3.5 x 3.6 cm fluid density simple cyst in the left mid to inferior posterior aspect (series 3, image 78), which previously measured approximately 2.9 x 3.0 cm, when measured along the same axes. No other contour abnormalities. No perinephric stranding. PELVIC ORGANS/BLADDER: Bladder is nondistended. Subcentimeter air focus in the nondependent portion of the bladder. No radiopaque stones. If absent. No adnexal masses. PERITONEUM/RETROPERITONEUM: No free air or fluid. LYMPH NODES: No intra-abdominal,retroperitoneal, pelvic or inguinal lymphadenopathy. VESSELS: Unremarkable for noncontrast exam. GI TRACT: No bowel dilation or evidence of obstruction. Appendix is well identified and normal in caliber. BONES AND SOFT TISSUES: No aggressive lytic or suspicious focal sclerotic lesions. Soft tissues are grossly unremarkable. IMPRESSION: 1. No ureteral calculi, hydronephrosis or obstruction. 2. Stable 4 mm nonobstructing calculus in the left superior pole. 3. Slight interval increase in size in 3.6 cm simple cyst in the left kidney, which requires no further follow-up. 4. Subcentimeter focus in the nondependent portion of the bladder. Correlate for prior instrumentation/Godinez catheter placement. 5. Stable 1.8 cm low-attenuation lesion in hepatic segment VII, which remains indeterminate, however, less conspicuous than on prior exam. Recommend evaluation with contrast-enhanced MRI abdomen with liver mass protocol, on a nonemergent basis. Signed by: Dr. Mike Chakraborty M.D. on 03/25/2020 7:36 PM
[2020-03-25] MEDS ORDERED: CEFTRIAXONE SOD 1 GM/NS 50 ML 50 ML IV ONE (20:30)
[2020-03-25] MEDS ORDERED: CEFDINIR300 MG PO (20:41)
[2020-03-25] MEDS ORDERED: TYLENOL WITH C1 EACH PO (20:43)
[2020-03-25] MEDS ORDERED: PHENAZOPYRIDIN100 MG PO (20:46)
[2020-03-25] MEDS ORDERED: ONDANSETRON ODT8 MG PO (20:47)
[2020-03-25 20:55] VITALS: BP 147/76
[2020-03-25] MEDS ORDERED: CEFTRIAXONE SOD 1 GM VIAL ONE (20:55)
== END 2020-03-25 21:00 | disposition home or self-care (01) ==
LOC: FSED 17:47
DX: R10.30 Lower abdominal pain, unspecified (principal); M54.5 Low back pain; R11.2 Nausea with vomiting, unspecified; N39.0 Urinary tract infection, site not specified; N20.0 Calculus of kidney
CPT/HCPCS: 74176; 80053; 81003; 85025; 87086; 96374; 99284; J0696 ×2; J1200; J1885; J2270; J2405; J7030

== ENCOUNTER 2022-01-16 20:38 | Inpatient (IN) | payer BC ==
[~2022-01-16] VITALS: Ht 162.6 cm; Wt 100.9 kg
[~2022-01-16 20:38] MED LIST changes: +GENTAMICIN SULFATE 40 MG/ML 2 ML VIAL ONE; +ONDANSETRON ODT8 MG PO; +PHENAZOPYRIDIN100 MG PO; +TYLENOL WITH C1 EACH PO
[2022-01-16] MEDS ORDERED: KETOROLAC TROMETHAMINE 30 MG/ML VIAL IV STA (20:41)
[2022-01-16] MEDS ORDERED: ONDANSETRON HCL INJ 2MG/ML 2ML 2 MG/ML VIAL IV STA (20:41)
[2022-01-16] MEDS ORDERED: SODIUM CHLORIDE 0.9% 1000ML 1,000 ML IV STA (20:41)
[2022-01-16] MEDS ORDERED: KETOROLAC TROMETHAMINE 30 MG/ML VIAL ONE (20:55)
[2022-01-16] MEDS ORDERED: SODIUM CHLORIDE 0.9% 1000ML 1,000 ML ONE (20:55)
[2022-01-16] MEDS ORDERED: HYDRALAZINE HCL 20 MG/ML VIAL IV STA (20:55)
[2022-01-16] MEDS ORDERED: ONDANSETRON HCL INJ 2MG/ML 2ML 2 MG/ML VIAL ONE (20:55)
[2022-01-16 21:10] LABS: BASOPHILS # (AUTO) 0.1 (0.0-0.1); BASOPHILS % 0.9 % (0.0-1.0); EOSINOPHILS # (AUTO) 0.3 (0.0-0.4); EOSINOPHILS % 3.5 % (0.0-6.0); HEMATOCRIT 39.4 % (34.2-44.1); HEMOGLOBIN 13.1 g/dL (12.0-16.0); LYMPHOCYTES # (AUTO) 2.3 (1.0-3.2); LYMPHOCYTES % 30.2 % (18.0-39.1); MEAN CORPUSCULAR HEMOGLOBIN 29.2 pg (28-32); MEAN CORPUSCULAR HGB CONC 33.2 g/dL (31-35); MEAN CORPUSCULAR VOLUME 87.8 fL (81-99); MONOCYTES # (AUTO) 0.4 (0.2-0.8); MONOCYTES % 5.5 % (4.4-11.3); NEUTROPHILS # (AUTO) 4.4 (2.1-6.9); NEUTROPHILS % 59.6 % (38.7-80.0); PLATELET COUNT 288 x10e3/uL (140-360); RED BLOOD COUNT 4.49 x10e6/uL (3.6-5.1); RED CELL DISTRIBUTION WIDTH 13.5 % (11.7-14.4)
[2022-01-16 21:12] LABS: CLARITY,URINE HAZY (CLEAR); COLOR,URINE YELLOW (YELLOW); KETONES,URINE NEGATIVE (NEGATIVE); LEUKOCYTE ESTERASE ,URINE SMALL (NEGATIVE); NITRITE,URINE NEGATIVE (NEGATIVE); PROTEIN,URINE DIPSTICK TRACE (NEGATIVE); URINE UROBILINOGEN 0.2 mg/dL (0.2 - 1)
[2022-01-16 21:16] LABS: BACTERIA,URINE FEW /HPF; EPITHELIAL CELLS,URINE FEW /LPF; WBC,URINE (MAN) >50 /HPF (0-5)
[2022-01-16 21:27] LABS: ALBUMIN 3.7 g/dL (3.5-5.0); ALBUMIN/GLOBULIN RATIO 1.1 (0.8-2.0); ANION GAP 11.6 mmol/L (8-16); CALCIUM 9.8 mg/dL (8.4-10.2); CREATININE, SERUM 1.1 mg/dL (0.57-1.11); POTASSIUM 3.6 mmol/L (3.5-5.1)
[2022-01-16] MEDS ORDERED: FENTANYL CITRATE/PF 100MCG/2 ML INJ IV ONE (22:00)
[2022-01-16] MEDS ORDERED: FENTANYL CITRATE/PF 100MCG/2 ML INJ ONE (22:14)
[2022-01-16] MEDS ORDERED: ONDANSETRON HCL INJ 2MG/ML 2ML 2 MG/ML VIAL IV PRN (22:45)
[2022-01-16] MEDS: CEFTRIAXONE 1 GM in SODIUM CHLORIDE 0.9% 50ML 50 ML IV SCH (23:18)
[2022-01-16] MEDS ORDERED: FENTANYL CITRATE/PF 100MCG/2 ML INJ IV PRN (23:30)
[2022-01-16] MEDS ORDERED: HYDROCODONE/APAP 5MG-325MG TAB PO PRN (23:45)
[2022-01-17] VITALS (8 sets, daily range): BP systolic 105–133; BP diastolic 63–78
[2022-01-17] MEDS: SODIUM CHLORIDE 0.9% 1000ML 1,000 ML IV SCH ×3 (00:01→22:02)
[2022-01-17] MEDS ORDERED: INDERAL20 MG PO (00:29)
[2022-01-17] MEDS ORDERED: SUMATRIPTAN SU100 MG PO (00:29)
[2022-01-17 05:23] LABS: BASOPHILS % 0.4 % (0.0-1.0); EOSINOPHILS # (AUTO) 0.3 (0.0-0.4); EOSINOPHILS % 4.1 % (0.0-6.0); HEMATOCRIT 37.2 % (34.2-44.1); HEMOGLOBIN 12.2 g/dL (12.0-16.0); LYMPHOCYTES # (AUTO) 2.6 (1.0-3.2); LYMPHOCYTES % 37.1 % (18.0-39.1); MEAN CORPUSCULAR HGB CONC 32.8 g/dL (31-35); MEAN CORPUSCULAR VOLUME 88.6 fL (81-99); MONOCYTES # (AUTO) 0.5 (0.2-0.8); MONOCYTES % 6.6 % (4.4-11.3); NEUTROPHILS # (AUTO) 3.6 (2.1-6.9); NEUTROPHILS % 51.5 % (38.7-80.0); PLATELET COUNT 230 x10e3/uL (140-360); RED CELL DISTRIBUTION WIDTH 13.5 % (11.7-14.4)
[2022-01-17 05:48] LABS: ANION GAP 9.7 mmol/L (8-16); CALCIUM 8.6 mg/dL (8.4-10.2); CREATININE, SERUM 0.75 mg/dL (0.57-1.11); POTASSIUM 3.7 mmol/L (3.5-5.1)
[2022-01-17] MEDS ORDERED: ACETAMINOPHEN 325 MG TAB PO PRN (10:15)
[2022-01-17] MEDS ORDERED: SUMATRIPTAN SUCCINATE 6 MG/0.5 ML VIAL SC ONE (11:30)
[2022-01-17] MEDS: METOPROLOL SUCCINATE 25 MG TAB XL PO SCH (17:07)
[2022-01-17] MEDS: KETOROLAC TROMETHAMINE 30 MG/ML VIAL IV PRN (17:35)
[2022-01-17] MEDS ORDERED: IMITREX6 MG/0.51 SC (20:04)
[2022-01-17] MEDS: CEFTRIAXONE 1 GM in SODIUM CHLORIDE 0.9% 50ML 50 ML IV SCH (22:02)
[2022-01-17] MEDS ORDERED: SUMATRIPTAN SUCCINATE 6 MG/0.5 ML VIAL SC PRN (23:30)
[2022-01-18] VITALS (7 sets, daily range): BP systolic 112–155; BP diastolic 74–92
[2022-01-18 04:43] LABS: BASOPHILS # (AUTO) 0.1 (0.0-0.1); EOSINOPHILS # (AUTO) 0.3 (0.0-0.4); EOSINOPHILS % 6.5 % (0.0-6.0); HEMATOCRIT 35.7 % (34.2-44.1); HEMOGLOBIN 11.3 g/dL (12.0-16.0); LYMPHOCYTES # (AUTO) 2.1 (1.0-3.2); LYMPHOCYTES % 41.3 % (18.0-39.1); MEAN CORPUSCULAR HEMOGLOBIN 28.7 pg (28-32); MEAN CORPUSCULAR HGB CONC 31.7 g/dL (31-35); MEAN CORPUSCULAR VOLUME 90.6 fL (81-99); MONOCYTES # (AUTO) 0.4 (0.2-0.8); MONOCYTES % 7.3 % (4.4-11.3); NEUTROPHILS # (AUTO) 2.2 (2.1-6.9); NEUTROPHILS % 43.5 % (38.7-80.0); PLATELET COUNT 202 x10e3/uL (140-360); RED BLOOD COUNT 3.94 x10e6/uL (3.6-5.1); RED CELL DISTRIBUTION WIDTH 13.3 % (11.7-14.4)
[2022-01-18] MEDS: SODIUM CHLORIDE 0.9% 1000ML 1,000 ML IV SCH ×2 (04:50→15:00)
[2022-01-18 05:06] LABS: ANION GAP 8.9 mmol/L (8-16); CALCIUM 8.8 mg/dL (8.4-10.2); CREATININE, SERUM 0.73 mg/dL (0.57-1.11); POTASSIUM 3.9 mmol/L (3.5-5.1)
[2022-01-18 06:06] LABS: THYROID STIMULATING HORMONE 2.18 uIU/mL (0.350-4.940)
[2022-01-18] MEDS ORDERED: B&O 60MG R/S 60 MG SUPP PR ONE (08:18)
[2022-01-18] MEDS ORDERED: IOPAMIDOL 300MG/ML 50ML INFUS..BTL IV ONE (08:18)
[2022-01-18] MEDS: METOPROLOL SUCCINATE 25 MG TAB XL PO SCH ×2 (09:00→11:43)
[2022-01-18] MEDS ORDERED: METOPROLOL SUCCINATE 25 MG TAB XL PO SCH (09:00)
[2022-01-18] MEDS ORDERED: FENTANYL CITRATE/PF 100MCG/2 ML INJ ONE ×2 (09:17→13:26)
[2022-01-18 09:23] LABS: AMPHETAMINES SCREEN,URINE NEGATIVE (NEGATIVE); BENZODIAZEPINES SCREEN,URINE NEGATIVE (NEGATIVE); PHENCYCLIDINE SCREEN,URINE NEGATIVE (NEGATIVE)
[2022-01-18] MEDS ORDERED: B&O 60MG R/S 60 MG SUPP PR PRN (10:45)
[2022-01-18] MEDS ORDERED: PHENAZOPYRIDINE HCL 100 MG TAB PO PRN (10:45)
[2022-01-18] MEDS: ALBUTEROL/IPRATROPIUM 3 ML NEB NEB SCH ×2 (11:40→19:15)
[2022-01-18] MEDS ORDERED: MIDAZOLAM HCL 2 MG/2 ML VIAL ONE (13:26)
[2022-01-18] MEDS: ACETAMINOPHEN/CODEINE 300MG - 30MG TAB PO PRN ×2 (15:56→21:33)
[2022-01-18] MEDS: KETOROLAC TROMETHAMINE 30 MG/ML VIAL IV PRN (19:57)
[2022-01-18] MEDS ORDERED: FUROSEMIDE INJ 10 MG/ML 2 ML VIAL IV ONE (21:00)
[2022-01-18] MEDS: CEFTRIAXONE 1 GM in SODIUM CHLORIDE 0.9% 50ML 50 ML IV SCH (21:32)
[2022-01-19] VITALS: BP 133/75
[2022-01-19] MEDS: SODIUM CHLORIDE 0.9% 1000ML 1,000 ML IV SCH (00:24)
[2022-01-19] MEDS: ACETAMINOPHEN/CODEINE 300MG - 30MG TAB PO PRN ×2 (03:15→08:30)
[2022-01-19 04:00] VITALS: BP 140/90
[2022-01-19] MEDS: ALBUTEROL/IPRATROPIUM 3 ML NEB NEB SCH (07:34)
[2022-01-19] MEDS ORDERED: SOLIFENACIN SUCCINATE 5 MG TAB PO SCH (09:00)
[2022-01-19 09:05] VITALS: BP 116/86
[2022-01-19 09:06] VITALS: BP 116/86
[2022-01-19] MEDS: METOPROLOL SUCCINATE 25 MG TAB XL PO SCH (09:16)
[2022-01-19] MEDS ORDERED: ceftin PO (11:32)
[2022-01-19] MEDS ORDERED: VESICARE5 MG PO (11:32)
[2022-01-19] MEDS ORDERED: ONDANSETRON HCL 4 MG ORAL DISINTEGRATING TAB PO PRN (12:00)
[2022-01-19 12:15] VITALS: BP 130/77
== END 2022-01-19 13:14 | disposition home or self-care (01) | DRG 661 ==
LOC: ER 20:42 → ERHOLD 23:44 → MED/SURG 23:53
PROVIDERS: ADMIT Internal Medicine; ATTEND Internal Medicine
PROC: 0T778DZ Dilation of Left Ureter with Intraluminal Device, Via Natural or Artificial Opening Endoscopic (ICD-10-PCS; 2022-01-18)
PROC: 0T768ZZ Dilation of Right Ureter, Via Natural or Artificial Opening Endoscopic (ICD-10-PCS; 2022-01-18)
PROC: BT141ZZ Fluoroscopy of Kidneys, Ureters and Bladder using Low Osmolar Contrast (ICD-10-PCS; 2022-01-18)
PROC: 0TC78ZZ Extirpation of Matter from Left Ureter, Via Natural or Artificial Opening Endoscopic (ICD-10-PCS; principal; 2022-01-18 15:30)
DX: N13.6 Pyonephrosis (principal); B96.20 Unspecified Escherichia coli [E. coli] as the cause of diseases classified elsewhere; N39.0 Urinary tract infection, site not specified; G43.909 Migraine, unspecified, not intractable, without status migrainosus; U09.9 Post COVID-19 condition, unspecified; N81.10 Cystocele, unspecified; N81.6 Rectocele; N95.2 Postmenopausal atrophic vaginitis; N39.46 Mixed incontinence; N94.10 Unspecified dyspareunia; E66.9 Obesity, unspecified; Z68.37 Body mass index [BMI] 37.0-37.9, adult; R31.29 Other microscopic hematuria; N28.1 Cyst of kidney, acquired; Z88.5 Allergy status to narcotic agent; Z20.822 Contact with and (suspected) exposure to COVID-19
CPT/HCPCS: 36415; 71045; 74018; 74176; 74420; 80048; 80053; 80061; 80307; 81001; 83036; 84443; 85025; 87086; 87186; 93005; 93306; 94799; 99284; C1758; C2617; J0360; J0696; J1580; J1885; J1940; J2250; J2405; J3010; J3030; J7030; U0002

== ENCOUNTER 2022-02-01 17:52 | Emergency (ER) | payer BC ==
[~2022-02-01] VITALS: Ht 315 cm; Wt 100.7 kg
[~2022-02-01 17:52] MED LIST changes: -GENTAMICIN SULFATE 40 MG/ML 2 ML VIAL ONE; +IMITREX6 MG/0.51 SC; +INDERAL20 MG PO; +SUMATRIPTAN SU100 MG PO; +VESICARE5 MG PO; +ceftin PO
== END 2022-02-01 19:38 | disposition home or self-care (01) ==
LOC: ER 17:58
DX: R05.9 Cough, unspecified (principal); J20.9 Acute bronchitis, unspecified; Z86.16 Personal history of COVID-19; Z87.442 Personal history of urinary calculi
CPT/HCPCS: 71046; 99283

== ENCOUNTER 2022-02-08 13:23 | Inpatient (IN) | payer BC ==
[~2022-02-08] VITALS: Ht 162.6 cm; Wt 95.3 kg
[2022-02-08 13:55] LABS: BASOPHILS # (AUTO) 0.1 (0.0-0.1); BASOPHILS % 0.6 % (0.0-1.0); EOSINOPHILS # (AUTO) 0.4 (0.0-0.4); EOSINOPHILS % 4.7 % (0.0-6.0); HEMATOCRIT 43.4 % (34.2-44.1); HEMOGLOBIN 13.8 g/dL (12.0-16.0); LYMPHOCYTES # (AUTO) 2.8 (1.0-3.2); LYMPHOCYTES % 29.2 % (18.0-39.1); MEAN CORPUSCULAR HEMOGLOBIN 28.6 pg (28-32); MEAN CORPUSCULAR HGB CONC 31.8 g/dL (31-35); MEAN CORPUSCULAR VOLUME 89.9 fL (81-99); MONOCYTES # (AUTO) 0.6 (0.2-0.8); MONOCYTES % 6.8 % (4.4-11.3); NEUTROPHILS # (AUTO) 5.5 (2.1-6.9); NEUTROPHILS % 58.3 % (38.7-80.0); PLATELET COUNT 314 x10e3/uL (140-360); RED BLOOD COUNT 4.83 x10e6/uL (3.6-5.1); RED CELL DISTRIBUTION WIDTH 13.4 % (11.7-14.4)
[2022-02-08] MEDS ORDERED: FENTANYL CITRATE/PF 100MCG/2 ML INJ IV PRN (14:00)
[2022-02-08 14:03] LABS: ANION GAP 11.9 mmol/L (8-16); CALCIUM 9.1 mg/dL (8.4-10.2); CREATININE, SERUM 0.78 mg/dL (0.57-1.11); POTASSIUM 3.9 mmol/L (3.5-5.1)
[2022-02-08 14:04] LABS: COLOR,URINE RED (YELLOW); KETONES,URINE NEGATIVE (NEGATIVE); LEUKOCYTE ESTERASE ,URINE SMALL (NEGATIVE); NITRITE,URINE NEGATIVE (NEGATIVE); PROTEIN,URINE DIPSTICK 2+ (NEGATIVE); URINE UROBILINOGEN 0.2 mg/dL (0.2 - 1)
[2022-02-08 14:05] LABS: CLARITY,URINE CLOUDY (CLEAR)
[2022-02-08 14:08] LABS: BACTERIA,URINE RARE /HPF; EPITHELIAL CELLS,URINE RARE /LPF; RBC,URINE >50 /HPF (0-5)
[2022-02-08 15:31] VITALS: BP 152/90
[2022-02-08 15:32] VITALS: BP 152/90
[2022-02-08 15:50] VITALS: BP 152/90
[2022-02-08] MEDS: ONDANSETRON HCL INJ 2MG/ML 2ML 2 MG/ML VIAL IV PRN (16:17)
[2022-02-08] MEDS: SODIUM CHLORIDE 0.9% 1000ML 1,000 ML IV SCH ×2 (16:17→23:26)
[2022-02-08 20:19] VITALS: BP 123/75
[2022-02-08 20:20] VITALS: BP 123/75
[2022-02-08] MEDS ORDERED: ACETAMINOPHEN/CODEINE 300MG - 30MG TAB PO PRN (20:30)
[2022-02-08] MEDS: HYDROMORPHONE 1MG/1ML INJ IV PRN (20:43)
[2022-02-09] VITALS (8 sets, daily range): BP systolic 93–146; BP diastolic 62–97
[2022-02-09] MEDS: HYDROMORPHONE 1MG/1ML INJ IV PRN ×5 (00:46→21:21)
[2022-02-09 04:58] LABS: BASOPHILS # (AUTO) 0.1 (0.0-0.1); BASOPHILS % 0.7 % (0.0-1.0); EOSINOPHILS # (AUTO) 0.4 (0.0-0.4); EOSINOPHILS % 6.3 % (0.0-6.0); HEMATOCRIT 40.7 % (34.2-44.1); HEMOGLOBIN 12.9 g/dL (12.0-16.0); LYMPHOCYTES # (AUTO) 2.8 (1.0-3.2); LYMPHOCYTES % 41.3 % (18.0-39.1); MEAN CORPUSCULAR HEMOGLOBIN 29.2 pg (28-32); MEAN CORPUSCULAR HGB CONC 31.7 g/dL (31-35); MEAN CORPUSCULAR VOLUME 92.1 fL (81-99); MONOCYTES # (AUTO) 0.5 (0.2-0.8); MONOCYTES % 6.9 % (4.4-11.3); NEUTROPHILS % 44.4 % (38.7-80.0); PLATELET COUNT 259 x10e3/uL (140-360); RED BLOOD COUNT 4.42 x10e6/uL (3.6-5.1); RED CELL DISTRIBUTION WIDTH 13.4 % (11.7-14.4)
[2022-02-09 05:27] LABS: ANION GAP 10.7 mmol/L (8-16); CREATININE, SERUM 0.75 mg/dL (0.57-1.11); POTASSIUM 3.7 mmol/L (3.5-5.1)
[2022-02-09] MEDS: SODIUM CHLORIDE 0.9% 1000ML 1,000 ML IV SCH ×3 (05:34→19:09)
[2022-02-09] MEDS: PROPRANOLOL HCL 10 MG TAB PO SCH (06:59)
[2022-02-09] MEDS ORDERED: B&O 60MG R/S 60 MG SUPP PR PRN (07:45)
[2022-02-09] MEDS ORDERED: PHENAZOPYRIDINE HCL 100 MG TAB PO PRN (07:45)
[2022-02-09] MEDS: ONDANSETRON HCL INJ 2MG/ML 2ML 2 MG/ML VIAL IV PRN ×3 (09:04→21:21)
[2022-02-09] MEDS ORDERED: PROMETHAZINE 12.5MG/ NACL 0.9% 12.5 MG/50 ML BAG IV PRN (11:30)
[2022-02-09] MEDS ORDERED: FENTANYL CITRATE/PF 100MCG/2 ML INJ ONE (17:54)
[2022-02-09] MEDS ORDERED: MIDAZOLAM HCL 2 MG/2 ML VIAL ONE (17:54)
[2022-02-09] MEDS ORDERED: SEVOFLURANE INHAL SOLN 250 ML PEN BTL ONE (19:21)
[2022-02-09] MEDS ORDERED: EPHEDRINE SULFATE INJ 50 MG/ML VIAL ONE (19:21)
[2022-02-09] MEDS ORDERED: PROPOFOL IV EMULSION 10 MG/ML 20 ML VIAL ONE (19:21)
[2022-02-09] MEDS ORDERED: ONDANSETRON HCL INJ 2MG/ML 2ML 2 MG/ML VIAL ONE (19:21)
[2022-02-09] MEDS ORDERED: LIDOCAINE HCL 2% LOCAL INJ 5 ML SDV VIAL INJ ONE (19:21)
[2022-02-09] MEDS ORDERED: CEFTRIAXONE 1 GM VIAL ONE (19:21)
[2022-02-09] MEDS ORDERED: DEXAMETHASONE SOD PHOS INJ 4 MG/ML SDV ONE (19:21)
[2022-02-09] MEDS ORDERED: POVIDONE IODINE 0.05% 0.05 % ML PO ONE (19:21)
[2022-02-09] MEDS ORDERED: GLYCOPYRROLATE INJ 0.2 MG/ML VIAL ONE (19:21)
[2022-02-10 00:26] VITALS: BP 109/67
[2022-02-10] MEDS: SODIUM CHLORIDE 0.9% 1000ML 1,000 ML IV SCH ×2 (01:17→08:02)
[2022-02-10 05:48] VITALS: BP 107/59
[2022-02-10 06:21] LABS: BASOPHILS % 0.2 % (0.0-1.0); EOSINOPHILS # (AUTO) 0.1 (0.0-0.4); EOSINOPHILS % 1.4 % (0.0-6.0); HEMATOCRIT 38.7 % (34.2-44.1); HEMOGLOBIN 12.3 g/dL (12.0-16.0); LYMPHOCYTES # (AUTO) 1.7 (1.0-3.2); LYMPHOCYTES % 17.4 % (18.0-39.1); MEAN CORPUSCULAR HEMOGLOBIN 28.4 pg (28-32); MEAN CORPUSCULAR HGB CONC 31.8 g/dL (31-35); MEAN CORPUSCULAR VOLUME 89.4 fL (81-99); MONOCYTES # (AUTO) 0.6 (0.2-0.8); MONOCYTES % 6.2 % (4.4-11.3); NEUTROPHILS # (AUTO) 7.4 (2.1-6.9); NEUTROPHILS % 74.2 % (38.7-80.0); PLATELET COUNT 275 x10e3/uL (140-360); RED BLOOD COUNT 4.33 x10e6/uL (3.6-5.1); RED CELL DISTRIBUTION WIDTH 13.1 % (11.7-14.4)
[2022-02-10 06:58] LABS: ANION GAP 10.8 mmol/L (8-16); CALCIUM 8.3 mg/dL (8.4-10.2); CREATININE, SERUM 0.71 mg/dL (0.57-1.11); MAGNESIUM 2.1 MG/DL (1.3-2.1); POTASSIUM 3.8 mmol/L (3.5-5.1)
[2022-02-10 08:00] VITALS: BP 107/59
[2022-02-10 08:11] VITALS: BP 137/81
[2022-02-10] MEDS: PROPRANOLOL HCL 10 MG TAB PO SCH (09:00)
[2022-02-10] MEDS: HYDROMORPHONE 1MG/1ML INJ IV PRN (09:46)
[2022-02-10] MEDS: ONDANSETRON HCL INJ 2MG/ML 2ML 2 MG/ML VIAL IV PRN (09:46)
[2022-03-08] MEDS ORDERED: NITROFURANTOIN100 MG PO (13:38)
[2022-03-08] MEDS ORDERED: ADDERALL 10 MG10 MG PO (13:38)
== END 2022-02-10 11:07 | disposition home or self-care (01) | DRG 661 ==
LOC: ER 13:33 → ERHOLD 13:47 → MED/SURG3 15:38
PROVIDERS: ADMIT Internal Medicine; ATTEND Internal Medicine
PROC: 0TC14ZZ Extirpation of Matter from Left Kidney, Percutaneous Endoscopic Approach (ICD-10-PCS; principal; 2022-02-08)
DX: N13.6 Pyonephrosis (principal); N81.10 Cystocele, unspecified; N81.6 Rectocele; G43.909 Migraine, unspecified, not intractable, without status migrainosus; Z20.822 Contact with and (suspected) exposure to COVID-19; Z88.5 Allergy status to narcotic agent; N95.2 Postmenopausal atrophic vaginitis
CPT/HCPCS: 36415; 50590; 74018; 80048; 81001; 83735; 84550; 85025; 94799; 96360; 99284; J0696; J1100; J1170; J2001; J2250; J2405; J2550; J3010; J7030; U0002

== ENCOUNTER → 2022-03-10 | Day surgery (SDC) | payer BC ==
[~2022-03-10] MED LIST changes: +ADDERALL 10 MG10 MG PO; +B&O 60MG R/S 60 MG SUPP PR ONE; +CEFTRIAXONE 1 GM VIAL ONE; +DEXAMETHASONE SOD PHOS INJ 4 MG/ML SDV ONE; +FENTANYL CITRATE/PF 100MCG/2 ML INJ ONE; +GENTAMICIN 80MG/NS 100 ML 200 ML IV ONE; +HYDROCODONE/APAP 5MG-325MG TAB ONE; +IOPAMIDOL 300MG/ML 50ML INFUS..BTL IV ONE; +LIDOCAINE HCL 2% LOCAL INJ 5 ML SDV VIAL INJ ONE; +MIDAZOLAM HCL 2 MG/2 ML VIAL ONE; +NITROFURANTOIN100 MG PO; +ONDANSETRON HCL INJ 2MG/ML 2ML 2 MG/ML VIAL ONE; +POVIDONE IODINE 0.05% 0.05 % ML PO ONE; +PROPOFOL IV EMULSION 10 MG/ML 20 ML VIAL ONE; +SEVOFLURANE INHAL SOLN 250 ML PEN BTL ONE
[2022-03-10 10:50] VITALS: BP 128/80
== END | disposition home or self-care (01) ==
LOC: OR 07:00
PROVIDERS: ATTEND Urology
DX: N20.1 Calculus of ureter (principal); N20.0 Calculus of kidney; Z46.6 Encounter for fitting and adjustment of urinary device; N28.89 Other specified disorders of kidney and ureter; N81.10 Cystocele, unspecified; N81.6 Rectocele; N36.41 Hypermobility of urethra; N95.2 Postmenopausal atrophic vaginitis; N39.0 Urinary tract infection, site not specified; M19.90 Unspecified osteoarthritis, unspecified site; G47.419 Narcolepsy without cataplexy; R05.9 Cough, unspecified; S14.109A Unspecified injury at unspecified level of cervical spinal cord, initial encounter; I45.10 Unspecified right bundle-branch block; X58.XXXA Exposure to other specified factors, initial encounter; Z88.6 Allergy status to analgesic agent; Z01.810 Encounter for preprocedural cardiovascular examination; Z01.812 Encounter for preprocedural laboratory examination; Z01.818 Encounter for other preprocedural examination; Z20.822 Contact with and (suspected) exposure to COVID-19; Z79.899 Other long term (current) drug therapy; Z95.818 Presence of other cardiac implants and grafts
CPT/HCPCS: 52352; 74018; 74420; 88300; 93005; C1769; J0696; J1100; J1580; J2001; J2250; J2405; J2704; J3010; Q9967; U0002